=== PATIENT | female | born 1975 | race Caucasian/White ===

== ENCOUNTER 2019-10-24 15:23 | Inpatient (IN) | payer BC ==
[~2019-10-24] VITALS: Ht 167.6 cm; Wt 77.1 kg
[~2019-10-24 15:23] MED LIST: AZITHROMYCIN 2250 MG; PREDNISONE
[2019-10-24 15:24] VITALS: BP 113/52
[2019-10-24] MEDS ORDERED: NORCO 5-325 TA1 EAC1 PO (15:29)
[2019-10-24] MEDS ORDERED: [UNRECOGNIZED DRUG - OTHER] PO (15:29)
[2019-10-24 17:16] LABS: URINE BILIRUBIN NEGATIVE (Negative); URINE BLOOD 1+ (Negative); URINE CLARITY CLEAR; URINE COLOR YELLOW; URINE GLUCOSE-RANDOM* NEGATIVE (Negative); URINE KETONES 2+ (Negative); URINE LEUKOCYTES-REFLEX NEGATIVE (Negative); URINE NITRITE-REFLEX NEGATIVE (Negative); URINE PROTEIN (DIPSTICK) 2+ (Negative); URINE SPECIFIC GRAVITY >= 1.030 (1.005-1.035)
[2019-10-24 17:16] LABS: ABSOLUTE NEUTROPHILS 13.9 thou/uL (1.4-8.2); BASOPHILS 0.2 % (0.0-2.0); HEMATOCRIT 39.1 % (37.0-47.0); MCH 30.8 pg (26.0-34.0); MCHC 33.2 g/dL (28.0-37.0); MCV 92.9 fL (80.0-100.0); MONOCYTES 8.2 % (1.0-8.0); PLATELET COUNT 155 thou/uL (150-400); POLYS 84.6 % (36.0-66.0); RBC 4.21 mil/uL (4.20-5.00); WBC 16.5 thou/uL (4.0-11.0)
[2019-10-24 17:26] LABS: CALCIUM 8.8 mg/dL (8.5-10.1); CREATININE 0.8 mg/dL (0.6-1.0); POTASSIUM 3.7 mmol/L (3.5-5.1)
[2019-10-24 17:27] LABS: SQUAMOUS 4-10 Moderate /LPF (0-3)
[2019-10-24 17:28] LABS: BACTERIA-REFLEX 1-9 Few /HPF (None Seen); CASTS None Seen /LPF (None Seen); CRYSTALS None Seen /LPF (None Seen); URINE RBC 3-10 Few /HPF (0-2); URINE WBC-REFLEX None Seen /HPF (0-5)
[2019-10-24 17:31] LABS: ALBUMIN 3.4 g/dL (3.4-5.0); TOTAL BILIRUBIN 0.6 mg/dL (<0.1-1.0); TOTAL PROTEIN 7.7 g/dL (6.4-8.2)
[2019-10-24] MEDS ORDERED: CEFDINIR300 MG PO (19:43)
[2019-10-24 20:21] VITALS: BP 99/56
[2019-10-24 20:45] VITALS: BP 109/67
[2019-10-24 21:35] VITALS: BP 98/57
[2019-10-25 02:15] VITALS: BP 94/54
--- NOTE | 2019-10-25 04:54 | NUR ---
PT ARRIVED ON THE UNIT @2049 FROM ER VIA WHEELCHAIR. A&OX4 DENIES PAIN ON ASSESSEDMENT. ADMISSION DONE AND CHARTED. PT ORIENTED TO ROOM. TOOK A SHOWER ON ARRIVAL. STATES FEELING A LIL BETTER AFTERWARDS. PT NPO WITH ONLY LIL SIPS OF WATER WITH MEDS. OLD IV WENT BAD THIS MORNING NEW IV 24 GAUAGE INSERTED IN LFT HAND. PT AD TWIN AND CALL LIGHT WITHIN REACH WILL CONT WITH POC TILL EOS.
[2019-10-25 06:20] LABS: HEMATOCRIT 35.6 % (37.0-47.0); HEMOGLOBIN 11.8 gm/dL (12.0-15.0); MCHC 33.1 g/dL (28.0-37.0); MCV 93.6 fL (80.0-100.0); RBC 3.8 mil/uL (4.20-5.00); RDW 13.2 % (10.5-14.5); WBC 11.9 thou/uL (4.0-11.0)
[2019-10-25 09:27] VITALS: BP 101/59
[2019-10-25 17:37] VITALS: BP 122/70
[2019-10-25 20:04] VITALS: BP 125/70
--- NOTE | 2019-10-25 20:09 | NUR ---
ASSUMED CARE OF PT A TAPPROX 0700. PT IS LAERT AND ORIENTED X4. ASSESSMENT CHARTED. MAINTAINS 02 SAT >90 ON RA. PT ANXIOUS TO GET HOME BUT ON BOARD WITH CURRENT PLAN GIVEN TO HER BY ENT UP TO DATE ON POC. PAIN TREATED WITH PRN PAIN MEDICATION. WORKING WELL TOWARDS POC GOALS.
--- NOTE | 2019-10-26 03:54 | NUR ---
PATIENT ALERT AND ORIENTED X4. DENIES PAIN. UP AD TWIN. TOLERATING DIET WELL. IV PATENT IN LH. SLEPT MOST OF THE NIGHT.
[2019-10-26 07:15] VITALS: BP 96/69
--- NOTE | 2019-10-26 11:03 | NUR ---
PATIENT UP AMBULATING IN HER ROOM. ALERT XS 4. PT CONTINUES ON FULL LIQUIDS . CALLED DR MARTELL TO DC FLUIDS. HE IS GOING TO PUT ORDER IN COMPUTER. PT WANTS TO DC TO HOME. DR MARTELL TO CONFER WITH ENT DOCTOR.
[2019-10-26 16:00] VITALS: BP 106/64
[2019-10-26] MEDS ORDERED: ACETAMINOPHEN325 M1 PO (18:06)
[2019-10-26] MEDS ORDERED: RAYOS5 MG PO (18:06)
[2019-10-26] MEDS ORDERED: CLEOCIN HCL300 MG PO (18:06)
[2019-10-26] MEDS ORDERED: NORCO 5-325 TA1 EAC1 PO (18:06)
[2019-10-26 18:16] VITALS: BP 106/64
== END 2019-10-26 19:00 | disposition home or self-care (01) | DRG 871 ==
LOC: ER 15:23 → 4S 19:29 → EROBS 19:29 → 4S 20:45
PROVIDERS: Emergency Medicine; Nurse Practitioner Acute Care; ADMIT Internal Medicine
DX: A41.9 Sepsis, unspecified organism (principal); K65.1 Peritoneal abscess; J03.90 Acute tonsillitis, unspecified; F17.210 Nicotine dependence, cigarettes, uncomplicated; D72.829 Elevated white blood cell count, unspecified; J03.00 Acute streptococcal tonsillitis, unspecified; Z79.899 Other long term (current) drug therapy; Z88.6 Allergy status to analgesic agent; Z80.3 Family history of malignant neoplasm of breast; Z90.49 Acquired absence of other specified parts of digestive tract
CPT/HCPCS: 10100; 10195